=== PATIENT | male | born 1945 | race Caucasian/White ===

== ENCOUNTER 2019-09-04 07:56 | Outpatient (CLI) | payer MEDICARE, OTHER, SELFPAY ==
--- NOTE | 2019-09-04 08:19 | CT_ITS ---
WS: [id number] CT HEAD WITH AND WITHOUT CONTRAST HISTORY: TINNITUS, LEFT EAR TECHNIQUE: Noncontrast 2.5 mm axial images obtained from the vertex to the skull base. Additional yang ging performed at 2.5 mm axial images status post IV contrast. Bone and soft tissue windows are revie wed. All CT scans at [facility] use at least one of these dose optimization techniques: a utomated exposure control; mA and/or kV adjustment per patient size (includes targeted exams where do se is matched to clinical indication); or iterative reconstruction. CONTRAST: Omnipaque 300; 95 mL IV. DLP: 2116.36 mGycm COMPARISON: 06/12/2019 No acute intracranial hemorrhage, edema or midline shift. Mild atrophy and mild chronic microvascular ischemic disease. No prior infarcts. No enhancing mass or vascular malformations identified. Dural venous sinuses are normally enhancing. Moderate atherosclerotic plaque within the intracranial carotid arteries. No occlusions or stenosis. Paranasal sinuses as visualized: Clear. Mastoid air cells: Clear. Calvarium and scalp: Intact. No abnormality noted along the LEFT internal auditory canal in the area of pain. Paraspinal and parap haryngeal soft tissues are normal. CT/CT head wo/w con [id number] IMPRESSION: 1. No acute intracranial hemorrhage or edema. 2. Mild atrophy and chronic ischemic disease. 3. No enhancing masses. 4. Moderate atherosclerosis intracranial carotid arteries.
[2019-09-04 09:09] LABS: Blood Urea Nitrogen 15 mg/dL (8-23)
[2019-09-04] MEDS: iohexol 300 mg/mL 100 mL Btl IV (09:16)
== END 2019-09-04 07:57 | disposition home or self-care (01) ==
LOC: RADWPI 08:04
PROVIDERS: Family Provider Internal Medicine; Visit Provider Specialist
DX: H93.12 Tinnitus, left ear (principal); G31.9 Degenerative disease of nervous system, unspecified; I65.23 Occlusion and stenosis of bilateral carotid arteries
CPT/HCPCS: 70470; 82565; 84520; Q9967

== ENCOUNTER 2020-10-04 15:19 | Outpatient (RCR) | payer OTHER, SELFPAY | END 2020-10-22 23:59 | disposition home or self-care (01) | LOC: SPT 15:19 | PROVIDERS: Family Provider Internal Medicine; Referring Provider Family Medicine; Visit Provider Family Medicine | DX: M54.5 Low back pain (principal) | CPT/HCPCS: 97161 ==

== ENCOUNTER 2021-05-26 12:25 | Outpatient (CLI) | payer OTHER, MEDICARE, SELFPAY ==
[2021-05-26 13:17] LABS: Testosterone Total 443.4 ng/dL (193-740); Thyroid Stimulating Hormone 0.59 uIU/mL (0.27-4.20)
== END 2021-05-26 12:26 | disposition home or self-care (01) ==
PROVIDERS: PCP Family Medicine; Visit Provider Internal Medicine Cardiovascular Disease
DX: E07.9 Disorder of thyroid, unspecified (principal); E34.9 Endocrine disorder, unspecified
CPT/HCPCS: 36415; 84403; 84443

== ENCOUNTER 2021-08-01 11:17 | Outpatient (CLI) | payer OTHER, MEDICARE, SELFPAY ==
--- NOTE | 2021-08-01 11:00 | USCV_ITS ---
Pablo Fish Age: 76 Gender: M : 1945 Exam Date: 08/01/2021 11:44 Ordering Phys: Tony Roman MD ([email or web address]) Technologist: Melina Segura [place] [facility] [place]: SOB BP: 138 / 58 HR: 71 Rhythm: Sinus Technical Quality: Adequate MEASUREMENTS (Male / Female) Normal Values 2D ECHO LV Diastolic Diameter PLAX 4.8 cm 4.2 - 5.9 / 3.9 - 5.3 cm LV Systolic Diameter PLAX 2.6 cm LV Chamber Size 4.6 cm IVS Diastolic Thickness 2.0 cm 0.6 - 1.0 / 0.6 - 0.9 cm IVS Systolic Thickness 2.1 cm LVPW Diastolic Thickness 1.3 cm 0.6 - 1.0 / 0.6 - 0.9 cm LVPW Systolic Thickness 1.7 cm RV Chamber Size 3.2 cm LVOT Diameter 2.0 cm LV Ejection Fraction 2D Teich 77.2 % LV Ejection Fraction MOD 2C 68.0 % LV Ejection Fraction 2C AL 68.5 % LA Diameter 3.0 cm LA Width 3.0 cm LA Height 4.4 cm RA Width 3.4 cm RA Height 4.6 cm Aorta at Sinotubular Diameter 3.2 cm M-MODE Aortic Annulus Diameter 4.0 cm LA Ao Ratio MM 0.9 MV E Point Septal Separation 0.3 cm DOPPLER AV Peak Velocity 213.0 cm/s LVOT Peak Velocity 82.0 cm/s AV Area Cont Eq vti 1.5 cm squared AV Area Cont Eq pk 1.2 cm squared MV Area PHT 2.5 cm squared Mitral E to A Ratio 0.7 MV E' Velocity 39.5 cm/s Mitral E to MV E' Ratio 7.8 Mitral E to LV E' Lateral Ratio 7.1 Mitral E to LV E' Septal Ratio 8.8 TR Peak Velocity 195.5 cm/s TR Peak Gradient 15.3 mmHg TR Mean Velocity 130.0 cm/s TR Mean Gradient 7.6 mmHg TR Velocity Time Integral 37.9 cm TV Peak E Velocity 59.0 cm/s Right Atrial Pressure 3.0 mmHg Pulmonary Artery Systolic Pressu 18.3 mmHg PV Peak Velocity 111.0 cm/s FINDINGS Left Ventricle Normal left ventricular cavity size. Normal left ventricular systolic function. No regional wall motion abnormalities. Left ventricular ejection fraction is estimated at 65 %. Grade I/IV diastolic dysfunction (abnormal relaxation filling pattern), normal to mildly elevated filling pressures. Right Ventricle The right ventricle is normal in size and function. Right Atrium The right atrium is normal in size. Left Atrium The left atrium is normal in size. Mitral Valve Mildly thickened mitral valve. No mitral valve stenosis. Mild mitral annular calcification. No mitral valve regurgitation. Aortic Valve Moderate aortic valve calcification. Mild aortic valve stenosis, mean gradient 8.1 mmHg, LISA 1.5 cm squared. Trace aortic valve regurgitation. Tricuspid Valve Structurally normal tricuspid valve without significant stenosis or regurgitation. Pulmonary artery systolic pressure is normal. Pulmonic Valve Structurally normal pulmonic valve without significant stenosis. There is no pulmonic regurgitation. Pericardium Normal pericardium without effusion. Aorta Normal ascending aorta dimension. CONCLUSIONS 1-Normal left ventricular cavity size. Normal left ventricular systolic function. No regional wall motion abnormalities. Left ventricular ejection fraction is estimated at 65 %. Grade I/IV diastolic dysfunction (abnormal relaxation filling pattern), normal to mildly elevated filling pressures. 2-Moderate aortic valve calcification. Mild aortic valve stenosis, mean gradient 8.1 mmHg, LISA 1.5 cm squared. Trace aortic valve regurgitation. 3-Mildly thickened mitral valve. No mitral valve stenosis. Mild mitral annular calcification. No mitral valve regurgitation. 4-There is no pericardial effusion. 5-Pulmonary artery systolic pressure is within normal limits. 6-Right atrial pressure is around 5 mm of mercury. 7-No significant change since the prior echocardiogram study of 10/31/2013.[id number] Tony Roman MD (Electronically Signed) Final Date: 02 August 2021 18:42 S
== END 2021-08-01 11:18 | disposition home or self-care (01) ==
PROVIDERS: PCP Family Medicine; Visit Provider Internal Medicine Cardiovascular Disease
DX: R06.02 Shortness of breath (principal); R07.9 Chest pain, unspecified; I35.0 Nonrheumatic aortic (valve) stenosis; I05.9 Rheumatic mitral valve disease, unspecified
CPT/HCPCS: 93306

== ENCOUNTER → 2021-11-30 14:57 | Outpatient (BNVA) | payer OTHER, SELFPAY | PROVIDERS: PCP Family Medicine; Visit Provider Internal Medicine | DX: R01.1 Cardiac murmur, unspecified (principal); I10 Essential (primary) hypertension; Z98.890 Other specified postprocedural states; Z86.79 Personal history of other diseases of the circulatory system; I35.0 Nonrheumatic aortic (valve) stenosis; Z87.891 Personal history of nicotine dependence; R53.82 Chronic fatigue, unspecified | CPT/HCPCS: 99214 ==

== ENCOUNTER → 2022-08-30 13:04 | Outpatient (BNVA) | payer OTHER, SELFPAY | PROVIDERS: PCP Family Medicine; Visit Provider Nurse Practitioner Family | DX: I35.0 Nonrheumatic aortic (valve) stenosis (principal); I10 Essential (primary) hypertension; Z87.891 Personal history of nicotine dependence; Z79.82 Long term (current) use of aspirin | CPT/HCPCS: 99214 ==

== ENCOUNTER 2022-09-01 10:12 | Outpatient (CLI) | payer OTHER, SELFPAY ==
--- NOTE | 2022-09-01 10:15 | USCV_ITS ---
Pablo Fish Age: 77 Gender: M : 1945 Exam Date: 09/01/2022 10:46 Ordering Phys: Cristhian Moreland XX Technologist: Yael John [place] [facility] [place]: aortic stenosis, check LVf unction BP: 130 / 80 HR: 80 Rhythm: Sinus Technical Quality: Adequate MEASUREMENTS (Male / Female) Normal Values 2D ECHO LV Diastolic Diameter PLAX 5.5 cm 4.2 - 5.9 / 3.9 - 5.3 cm LV Systolic Diameter PLAX 2.6 cm IVS Diastolic Thickness 1.2 cm 0.6 - 1.0 / 0.6 - 0.9 cm IVS Systolic Thickness 1.7 cm LVPW Diastolic Thickness 1.0 cm 0.6 - 1.0 / 0.6 - 0.9 cm LVPW Systolic Thickness 2.3 cm LVOT Diameter 2.0 cm LV Ejection Fraction 2D Teich 83.0 % LV Ejection Fraction MOD 2C 71.9 % LV Ejection Fraction 2C AL 72.8 % LA Diameter 2.8 cm LA Width 3.4 cm LA Height 5.7 cm RA Width 3.6 cm RA Height 5.1 cm Aorta at Sinotubular Diameter 2.5 cm IVC Diameter 1.6 cm M-MODE MV E Point Septal Separation 0.4 cm DOPPLER AV Peak Velocity 271.3 cm/s LVOT Peak Velocity 112.0 cm/s AV Area Cont Eq vti 1.4 cm squared AV Area Cont Eq pk 1.3 cm squared MV Peak Velocity 118.0 cm/s MV Area PHT 2.9 cm squared Mitral E to A Ratio 0.6 MV E' Velocity 32.0 cm/s Mitral E to MV E' Ratio 8.4 Mitral E to LV E' Lateral Ratio 8.5 Mitral E to LV E' Septal Ratio 8.3 TR Peak Velocity 158.8 cm/s TR Peak Gradient 10.1 mmHg Right Atrial Pressure 5.0 mmHg Pulmonary Artery Systolic Pressu 15.1 mmHg PV Peak Velocity 103.0 cm/s RV Acceleration Time 0.1 s RV Ejection Time 0.3 s RV AcT/ET 0.4 FINDINGS Left Ventricle Normal left ventricular size and systolic function, EF 63 %. Grade I/IV diastolic dysfunction (abnormal relaxation filling pattern), normal to mildly elevated filling pressures. Right Ventricle The right ventricle is normal in size and function. Right Atrium The right atrium is normal in size. Left Atrium Mildly increased left atrial size. Mitral Valve No gross abnormalities noted Aortic Valve Thickened aortic valve. Trace aortic valve regurgitation. Moderate aortic valve stenosis, mean gradient 14.6 mmHg, LISA 1.4 cm squared. Peak velocity of 2.71 m/s . Tricuspid Valve No gross abnormalities noted Pulmonic Valve Pulmonic valve not well visualized. Pericardium Normal pericardium without effusion. Aorta Normal ascending aorta dimension. IVC Normal inferior vena cava. CONCLUSIONS Normal left ventricular size and systolic function, EF 63 %. Grade I/IV diastolic dysfunction (abnormal relaxation filling pattern), normal to mildly elevated filling pressures. Moderate aortic valve stenosis, mean gradient 14.6 mmHg, LISA 1.4 cm squared. Peak velocity of 2.71 m/s . Mildly increased left atrial size. There is no pericardial effusion. There are no intracardiac masses. Compared to the study from 08/01/2021, there is some worsening of the aortic valve stenosis Dr Massimo Shah MD [facility] (Electronically Signed) Final Date: 05 September 2022 00:47 S
[2022-09-01 12:36] LABS: Free T4 Free Thyroxine 1.72 ng/dL (0.82-1.77); T3 Free 2.5 PG/ML (2.0-4.4); Thyroid Stimulating Hormone 0.86 uIU/mL (0.27-4.20)
== END 2022-09-01 10:13 | disposition home or self-care (01) ==
LOC: RAD 10:16
PROVIDERS: PCP Family Medicine; Visit Provider Chiropractor
DX: R06.02 Shortness of breath (principal); I35.0 Nonrheumatic aortic (valve) stenosis; I51.7 Cardiomegaly; I10 Essential (primary) hypertension; E03.9 Hypothyroidism, unspecified
CPT/HCPCS: 36415; 84439; 84443; 84481; 93306

== ENCOUNTER 2022-12-19 09:22 | Outpatient (CLI) | payer OTHER, SELFPAY ==
--- NOTE | 2022-12-19 09:33 | USCV_ITS ---
Pablo Fish Age: 77 Gender: M : 1945 Exam Date: 12/19/2022 09:50 Ordering Phys: Cristhian Moreland Technologist: Timothy Hernandez Manager File Exam Location: [facility] [place] Indication: pvd RIGHT LEFT Brachial 160.00 mmHg Brachial 147.00 mmHg Pressure (mmHg) Waveform Pressure (mmHg) Waveform 0.00 Above Knee 174.00 RECONSIGNMENT CLERK 169.00 175.00 DPA 147.00 1.09 Ankle/Brachial Index 1.06 142.00 Pre-Exercise Toe Pressure 139.00 0.89 Pre-Exercise Toe/Brachial Index 0.87 FINDINGS Resting SHARON of 1.09 on the right and 1.06 on the left Resting TBI of 0.89 on the right and 0.87 on the left CONCLUSIONS Normal resting ABIs and TBIs bilaterally. No evidence of any significant arterial obstruction, based on the above findings. Dr Massimo Shah MD [facility] (Electronically Signed) Final Date: 19 December 2022 19:13 S
== END 2022-12-19 09:23 | disposition home or self-care (01) ==
PROVIDERS: PCP Family Medicine; Visit Provider Chiropractor
DX: I73.9 Peripheral vascular disease, unspecified (principal)
CPT/HCPCS: 93922

== ENCOUNTER 2023-01-24 08:34 | Outpatient (RCR) | payer MEDICARE, OTHER, SELFPAY | END 2023-02-22 23:59 | disposition home or self-care (01) | LOC: SPT 08:34 | PROVIDERS: Visit Provider Specialist | DX: R51.9 Headache, unspecified (principal); R42 Dizziness and giddiness; H81.10 Benign paroxysmal vertigo, unspecified ear | CPT/HCPCS: 95992; 97161; 99204 ==

== ENCOUNTER 2023-05-25 10:20 | Outpatient (RCR) | payer MEDICARE, OTHER, SELFPAY | END 2023-06-24 23:59 | disposition home or self-care (01) | LOC: SPT 10:20 | PROVIDERS: Visit Provider Otolaryngology | DX: H81.13 Benign paroxysmal vertigo, bilateral (principal) | CPT/HCPCS: 95992; 97161 ==

== ENCOUNTER 2023-08-22 09:24 | Outpatient (CLI) | payer MEDICARE, OTHER, SELFPAY ==
--- NOTE | 2023-08-22 09:29 | XR_ITS ---
WS: [id number] Exam: XR chest 2V* [id number] Date/Time of Exam: 08/22/2023 9:53 AM Reason For Exam: ACUTE COUGH Comparison with outside images performed 05/23/2018. The lungs are clear and fully expanded. Heart size is normal. The mediastinum is normal in contour. N o pleural effusions. Bony structures are intact. There are neurostimulator electrodes in the region o f the mid thoracic and lower cervical spine. An endostent is noted in the abdominal aorta. IMPRESSION: 1. No acute cardiopulmonary finding.
== END 2023-08-22 09:25 | disposition home or self-care (01) ==
LOC: RAD 09:26
PROVIDERS: Visit Provider Family Medicine
DX: R05.1 Acute cough (principal)
CPT/HCPCS: 71046

== ENCOUNTER 2023-10-11 15:29 | Outpatient (CLI) | payer MEDICARE, OTHER, SELFPAY ==
--- NOTE | 2023-10-11 15:32 | CT_ITS ---
WS: [id number] CT LUMBAR SPINE TECHNIQUE: Contrast-enhanced CT of the lumbar spine with coronal and sagittal reformatted images. CLINICAL INFORMATION: Other low back pain COMPARISON: CT 2015 DLP: 893.[address] scans at [facility] use at least one of these dose optimization techniques: automated e xposure control; mA and/or kV adjustment per patient size (includes targeted exams where dose is matc hed to clinical indication); or iterative reconstruction. FINDINGS: Lumbar scoliosis convex LEFT. Hypertrophic changes lumbar spine. Partially visualized dorsal spinal s timulator. Disc space narrowing throughout the lumbar spine with vacuum disc phenomenon. Ankylosis L2 -3 disc space. T12-L1: Mild central canal stenosis. Mild bilateral foraminal narrowing. Moderate facet arthropathy. L1-L2: Disc osteophyte protrusion with impingement the RIGHT subarticular recess and traversing RIGHT L2 nerve root. Mild central canal stenosis. Moderate RIGHT foraminal narrowing. Mild LEFT foraminal narrowing. Moderate facet arthropathy. L2-L3: Ankylosis across the disc space. Mild central canal stenosis. Narrowing of the RIGHT greater t meneses LEFT subarticular recess. Moderate RIGHT and mild LEFT foraminal narrowing. L3-L4: Mild disc bulging with moderate central canal stenosis. Advanced facet arthropathy. Severe RIG HT and mild to moderate LEFT foraminal narrowing. L4-L5: Prior postoperative changes RIGHT hemilaminectomy. Moderate central canal stenosis. Narrowing of the subarticular recess. Disc osteophyte complex. Severe LEFT and moderate RIGHT foraminal narrowi ng. L5-S1: Shallow central disc protrusion. Advanced LEFT facet arthropathy. Severe LEFT and moderate RIG HT foraminal narrowing. Mild central canal stenosis with slight contact of the S1 nerve roots. Partially visualized small RIGHT renal cyst. Partially visualized aortic endograft with biiliac extension. Abdominal aortic aneurysm and bilateral iliac aneurysms RIGHT greater than LEFT. Dislocation and vacuum disc phenomenon has progressed since 2015. Ankylosis across the disc space at L2-3 is new. Multilevel spinal canal and foraminal narrowing is similar in appearance to 2015. IMPRESSION: 1. Lumbar scoliosis. No acute compression fractures. 2. Multilevel mild to moderate central canal stenosis described above. 3. Moderate to severe bony foraminal narrowing worse at RIGHT L2-3, RIGHT L3-4, LEFT L4-5 and LEFT L 5-S1. 4. Advanced facet arthropathy worse at RIGHT L3-4, LEFT L4-5 and LEFT L5-S1. 5. Aortic endograft with biiliac extension partially evaluated. 6. Dorsal column stimulator partially visualized.
[2023-10-11] MEDS: iohexol 350 mg/mL 500 mL Btl (per mL) IV (16:10)
== END 2023-10-11 15:30 | disposition home or self-care (01) ==
LOC: RAD 15:30
PROVIDERS: Visit Provider Nurse Practitioner Family
DX: M54.59 Other low back pain (principal); G89.29 Other chronic pain; M41.86 Other forms of scoliosis, lumbar region; M48.061 Spinal stenosis, lumbar region without neurogenic claudication; M48.07 Spinal stenosis, lumbosacral region; M47.816 Spondylosis without myelopathy or radiculopathy, lumbar region
CPT/HCPCS: 72132; Q9967

== ENCOUNTER 2023-11-20 15:50 | Outpatient (CLI) | payer MEDICARE, OTHER, SELFPAY ==
--- NOTE | 2023-11-20 16:10 | XRR_ITS ---
PROCEDURE INFORMATION: Exam: XR Chest Exam date and time: 11/20/2023 4:13 PM Age: 78 years old Clinical indication: Cough; Prior surgery; Surgery date: 6+ months; Surgery type: Stent, spinal stimulator; Additional info: Wheezing, cough TECHNIQUE: Imaging protocol: Radiologic exam of the chest. Views: 2 views. COMPARISON: CR XR chest 2V* [id number] 08/22/2023 9:54 AM FINDINGS: Tubes, catheters and devices: Epidural electrodes projecting over the cervical region and lower thoracic region. Lungs: Unremarkable. No consolidation. Pleural spaces: Unremarkable. No pleural effusion. No pneumothorax. Heart/Mediastinum: Unremarkable. No cardiomegaly. Bones/joints: Degenerative changes in the thoracic spine. XR/XR chest 2V* [id number] IMPRESSION: No acute findings.
== END 2023-11-20 15:51 | disposition home or self-care (01) ==
LOC: RAD 15:52
PROVIDERS: Visit Provider Family Medicine
DX: R06.2 Wheezing (principal); R05.8 Other specified cough; G31.89 Other specified degenerative diseases of nervous system
CPT/HCPCS: 71046

== ENCOUNTER 2024-01-15 11:15 | Outpatient (CLI) | payer MEDICARE, OTHER, SELFPAY ==
[2024-01-15 11:27] VITALS: PULSE 92; RESP 18; O2SAT 99
[2024-01-15] MEDS: albuterol 2.5 mg/3 mL Neb INHALATION (11:27)
== END 2024-01-15 11:16 | disposition home or self-care (01) ==
PROVIDERS: PCP Family Medicine; Visit Provider Family Medicine
DX: R06.02 Shortness of breath (principal); R05.8 Other specified cough
CPT/HCPCS: 94060; J7613

== ENCOUNTER → 2024-03-12 14:45 | Outpatient (BNVA) | payer OTHER, SELFPAY | PROVIDERS: PCP Family Medicine; Visit Provider Internal Medicine Cardiovascular Disease | DX: I35.0 Nonrheumatic aortic (valve) stenosis (principal); Z98.890 Other specified postprocedural states; Z86.79 Personal history of other diseases of the circulatory system; I10 Essential (primary) hypertension; Z87.891 Personal history of nicotine dependence | CPT/HCPCS: 99214 ==

== ENCOUNTER 2024-06-12 09:00 | Outpatient (CLI) | payer OTHER, SELFPAY ==
--- NOTE | 2024-06-12 09:15 | USCV_ITS ---
Pablo Fish Age: 79 Gender: M : 1945 Exam Date: 06/12/2024 09:22 Ordering Phys: Tony Roman MD ([email or web address]) Technologist: [place] [facility] [place]ication: cp BP: 130 / 70 HR: 66 Rhythm: Sinus Technical Quality: Adequate MEASUREMENTS (Male / Female) Normal Values 2D ECHO LV Diastolic Diameter PLAX 5.0 cm 4.2 - 5.9 / 3.9 - 5.3 cm IVS Diastolic Thickness 1.3 cm 0.6 - 1.0 / 0.6 - 0.9 cm IVS Systolic Thickness 2.1 cm LVPW Diastolic Thickness 1.3 cm 0.6 - 1.0 / 0.6 - 0.9 cm LVPW Systolic Thickness 1.7 cm LVOT Diameter 2.7 cm LV Ejection Fraction 2D Teich 70.0 % LV Ejection Fraction MOD 4C 53.3 % LV Ejection Fraction MOD 2C 57.6 % LV Ejection Fraction 2C AL 58.2 % M-MODE LA Ao Ratio MM 1.2 AV Cusp Separation MM 1.1 cm DOPPLER AV Peak Velocity 298.2 cm/s LVOT Peak Velocity 86.0 cm/s AV Area Cont Eq vti 1.8 cm squared AV Area Cont Eq pk 1.7 cm squared MV Area PHT 3.3 cm squared Mitral E to A Ratio 0.6 TR Peak Velocity 247.0 cm/s TR Peak Gradient 24.4 mmHg TV Peak E Velocity 87.0 cm/s PV Peak Velocity 130.0 cm/s FINDINGS Left Ventricle Left ventricle is normal in size. LV systolic function is normal with EF 55 to 60%. No regional wall motion abnormalities are seen. Grade 1 diastolic dysfunction Right Ventricle Normal in size and function Right Atrium Normal in size Left Atrium Normal in size Mitral Valve Structurally normal mitral valve. Mild mitral regurgitation. Aortic Valve Aortic valve is thickened. Mild aortic stenosis with mean gradient of 15 mmHg. Tricuspid Valve Mild tricuspid regurgitation. Insufficient TR jet to evaluate RVSP. Pulmonic Valve Mild pulmonic regurgitation. Pericardium Normal Aorta Normal in size IVC Grossly normal CONCLUSIONS LV systolic function is normal with EF of 55-60%. Grade 1 diastolic dysfunction. Mild mitral regurgitation Mild aortic stenosis Mild tricuspid regurgitation Mild pulmonic regurgitation Timmy Marquez MD (Electronically Signed) Final Date: 28 June 2024 08:56 S
== END 2024-06-12 09:01 | disposition home or self-care (01) ==
LOC: RAD 09:06
PROVIDERS: Absent Provider Family Medicine; PCP Family Medicine; Visit Provider Internal Medicine Cardiovascular Disease
DX: I50.30 Unspecified diastolic (congestive) heart failure (principal); I35.8 Other nonrheumatic aortic valve disorders
CPT/HCPCS: 93306

== ENCOUNTER → 2024-10-06 14:23 | Outpatient (BNVA) | payer OTHER, SELFPAY | PROVIDERS: PCP Family Medicine; Visit Provider Internal Medicine Cardiovascular Disease | DX: Z98.890 Other specified postprocedural states (principal); I10 Essential (primary) hypertension; I35.0 Nonrheumatic aortic (valve) stenosis; Z79.82 Long term (current) use of aspirin; Z87.891 Personal history of nicotine dependence | CPT/HCPCS: 99214 ==

== ENCOUNTER → 2025-02-04 15:06 | Outpatient (BNVA) | payer MEDICARE, SELFPAY | PROVIDERS: PCP Family Medicine; Visit Provider Specialist | DX: M16.11 Unilateral primary osteoarthritis, right hip (principal); M70.61 Trochanteric bursitis, right hip | CPT/HCPCS: 20610; 73502; 99205; J1100; J2795; J3301; J9999 ==

== ENCOUNTER → 2025-02-20 11:30 | Outpatient (BNVA) | payer MEDICARE, SELFPAY | PROVIDERS: PCP Family Medicine; Visit Provider Specialist | DX: M16.11 Unilateral primary osteoarthritis, right hip (principal); M70.61 Trochanteric bursitis, right hip | CPT/HCPCS: 20610; 77002; J1100; J2795; J3301; J9999 ==

== ENCOUNTER 2025-03-30 16:51 | Outpatient (CLI) | payer MEDICARE, OTHER, SELFPAY ==
--- NOTE | 2025-03-30 16:57 | CTR_ITS ---
PROCEDURE INFORMATION: Exam: CT Lumbar Spine Without Contrast Exam date and time: 03/30/2025 5:05 PM Age: 79 years old Clinical indication: Low back pain; Prior surgery; Surgery date: 6+ months; Surgery type: Stimulator; Additional info: Lumbosacral radiculopathy TECHNIQUE: Imaging protocol: Computed tomography of the lumbar spine without contrast. Radiation optimization: All CT scans at this facility use at least one of these dose optimization techniques: automated exposure control; mA and/or kV adjustment per patient size (includes targeted exams where dose is matched to clinical indication); or iterative reconstruction. COMPARISON: CT lumbar spine w con 10/11/2023 RADIATION DOSE METRICS: Total DLP (mGy-cm): 954.35 FINDINGS: Chronic lumbar levoscoliosis centered at L2 similar in appearance to 10/11/2023. Slight left lateral listhesis of L3 on L4 also appears similar. Degenerative disc space narrowing eccentric to the left at L4-L5 and L5-S1 and eccentric to the right at L1-L2, L2-L3, and L3-L4, similar to prior exam. Chronic multilevel lumbar facet arthropathy is again evident. T12-L1: At least mild central canal stenosis secondary to facet DJD. [id number] foraminal narrowing L1-L2: Concentric central canal stenosis with moderately severe compression of the thecal sac by circumferential disc bulge and endplate osteophytes and facet hypertrophy., ligamentum flavum laxity, and mild disc bulge. Moderate foraminal narrowing slightly greater on right than left. L2-L3: Regional fusion across the disc space. Mild central canal stenosis. Similar degree of stenosis of the subarticular recesses compared to prior exam. Moderate right foraminal stenosis and mild left foraminal narrowing. L3-L4: Severe central canal stenosis with near complete compression of thecal sac secondary to chronic facet DJD, circumferential disc bulge and mild endplate osteophytes, and ligamentum flavum laxity. There is severe stenosis of the right L3 foramen and moderate stenosis of the left L3 foramen. L4-L5: Central canal stenosis with moderately severe compression of the thecal sac. Advanced chronic facet arthropathy contributes to subarticular recess stenosis. There is extremely severe left foraminal stenosis and moderately severe right foraminal stenosis. L5-S1: Chronic disc bulge and mild endplate osteophytes abut the S1 nerve roots as they exit the thecal sac. There is negligible mass effect on thecal sac. However, there is bilateral L5 foraminal stenosis, severe left and moderately severe on right. Soft tissues: Previous aortoiliac stent endograft therapy for abdominal aortic aneurysm that measured approximately 4.4 cm diameter, right common iliac artery aneurysm measuring 4.5 cm diameter, and left common iliac artery aneurysm measuring approximately 3.5 cm diameter. Metallic densities may represent bilateral internal iliac artery embolization coils. Bilateral renal cysts are present; please note that the kidneys are incompletely imaged and not optimally evaluated on this unenhanced study. Spinal cord nerve stimulator implant in the left gluteal subcutaneous fat. The electrodes enter the male in the upper lumbar region and ascend into the thoracic canal, incompletely imaged. CT/CT lumbar spine wo con* [id number] IMPRESSION: 1. No obvious acute abnormality detected. 2. There is severe chronic multilevel lumbar degenerative disc disease and severe multilevel lumbar facet arthropathy. These findings produce varying degrees of central canal, subarticular, and foraminal stenoses that, overall, very similar to 10/11/2023 exam. Please see specific details level provided above. 3. Aortoiliac aneurysms previously treated with endograft therapy.
== END 2025-03-30 16:52 | disposition home or self-care (01) ==
LOC: RAD 16:54
PROVIDERS: PCP Family Medicine; Visit Provider Student in an Organized Health Care Education/Training Program
DX: M54.17 Radiculopathy, lumbosacral region (principal); M41.9 Scoliosis, unspecified; M48.061 Spinal stenosis, lumbar region without neurogenic claudication; M48.04 Spinal stenosis, thoracic region; M25.78 Osteophyte, vertebrae; M51.369 Other intervertebral disc degeneration, lumbar region without mention of lumbar back pain or lower extremity pain; M53.3 Sacrococcygeal disorders, not elsewhere classified; I71.40 Abdominal aortic aneurysm, without rupture, unspecified; I72.3 Aneurysm of iliac artery; Q61.02 Congenital multiple renal cysts
CPT/HCPCS: 72131